=== PATIENT | male | born 1995 | race Caucasian/White ===

== ENCOUNTER 2022-10-18 20:22 | Emergency (ER) | payer BC, OTHER ==
--- NOTE | 2022-10-18 20:38 | ERPHSYRPT ---
- History of Present Illness Time Seen by Provider: 10/18/22 20:38 Source: patient Exam Limitations: no limitations Physician History: This is 27-year-old white male patient who was feeling well until yesterday afternoon/evening when he began having a mild cough, headache, body aches sore throat and fever. Patient has no known exposure to individuals similar symptoms or with viral illness diagnoses. Patient states he took his temperature at home and his thermometer was reading 105.6 F. He has no chest pain. He does not have significant shortness of breath. He denies nausea vomiting or diarrhea. He has no abdominal pain. He has no neck pain. Timing/Duration: yesterday Fever Severity: moderate Fever Therapy SPEECH PATHOLOGIST: none Associated Symptoms: cough, headache, muscle aches, sore throat, No stiff neck Allergies/Adverse Reactions: No Known Drug Allergies Allergy (Verified 10/18/22 20:54) Hx Tetanus, Diphtheria Vaccination/Date Given: Yes Hx Influenza Vaccination/Date Given: No Hx Pneumococcal Vaccination/Date Given: No Travel Risk - International Travel Have you traveled outside of the country in past 3 weeks: No - Coronavirus Screening Are you exhibiting any of the following symptoms?: Yes Symptoms: Fever, Cough: New Onset, Headaches/Body Aches/Fatigue Close contact with a COVID-19 positive Pt in past 14-21 Days: No - Review of Systems Constitutional: Fever Eyes: No Symptoms Ears, Nose, & Throat: Throat Pain Respiratory: Cough, No Dyspnea Cardiac: No Symptoms, No Chest Pain Abdominal/Gastrointestinal: No Symptoms Genitourinary Symptoms: No Symptoms Musculoskeletal: Arthralgias, Myalgias Skin: No Symptoms Neurological: No Symptoms Psychological: No Symptoms Endocrine: No Symptoms Hematologic/Lymphatic: No Symptoms Immunological/Allergic: No Symptoms All Other Systems: Reviewed and Negative - Past Medical History Pertinent Past Medical History: No - Past Surgical History Past Surgical History: No - Social History Smoking Status: Never smoker Exposure to second hand smoke: No Drug Use: none Patient Lives Alone: Yes - Nursing Vital Signs Nursing Vital Signs: Initial Vital Signs Temperature 103.3 F 10/18/22 20:36 Pulse Rate 94 H 10/18/22 20:36 Respiratory Rate 18 10/18/22 20:36 Blood Pressure 137/67 10/18/22 20:36 O2 Sat by Pulse Oximetry 98 10/18/22 20:36 Pain Scale Pain Intensity 8 - Physical Exam General Appearance: mild distress, alert Eye Exam: PERRL/EOMI, eyes nml inspection ENT Exam: normal ENT inspection, pharynx normal Neck Exam: normal inspection, non-tender, supple, full range of motion Respiratory Exam: normal breath sounds, lungs clear, no accessory muscle use, No chest non-tender, No no respiratory distress, No decreased breath sounds, No respiratory distress, No accessory muscle use, No stridor, No wheezing Cardiovascular/Chest Exam: normal heart sounds, tachycardia Gastrointestinal/Abdominal Exam: soft, non tender, no distention, no mass, no guarding, no ecchymosis, no organomegaly, no pulsatile mass, normal bowel sounds Rectal Exam: not done Extremity Exam: non-tender, normal range of motion, normal inspection, normal capillary refill, no calf tenderness, no pedal edema, pelvis stable, No calf tenderness Neurologic Exam: alert, oriented x 3, cooperative, fish peddler II-XII nml as tested, normal mood/affect, nml cerebellar function, nml station & gait, sensation nml Skin Exam: normal color, warm, dry Lymphatic: No adenopathy SpO2 Interpretation: normal O2 Delivery: Room Air - Course Nursing assessment & vital signs reviewed: Yes Ordered Tests: Active Orders 24 hr Category Date Time Status IV Insertion STAT Care 10/18/22 21:42 Active UA W/RFX UR CULTURE Stat Lab 10/18/22 21:02 Completed Medication Summary Generic Name Dose Route Start Last Admin Trade Name Freq PRN Reason Stop Dose Admin Sodium Chloride 1,000 mls @ 999 mls/hr 10/18/22 21:42 10/18/22 21:44 Sodium Chloride 0.9% 1000 Ml IV 10/18/22 22:42 999 mls/hr .Q1H1M STA Administration Discontinued Medications Generic Name Dose Route Start Last Admin Trade Name Freq PRN Reason Stop Dose Admin Acetaminophen 650 mg 10/18/22 20:46 10/18/22 20:52 Acetaminophen 325 Mg Tablet PO 10/18/22 20:47 650 mg STAT STA Administration Acetaminophen Confirm 10/18/22 20:50 Acetaminophen 325 Mg Tablet Administered 10/18/22 20:51 Dose 650 mg .ROUTE .STK-MED ONE Hydrocodone Bitart/Acetaminophen 15 ml 10/18/22 21:45 10/18/22 21:55 Hydrocodone/Acetaminophen 5 Ml Udcup PO 10/18/22 21:46 15 ml STAT STA Administration Hydrocodone Bitart/Acetaminophen Confirm 10/18/22 21:54 Hydrocodone/Acetaminophen 5 Ml Udcup Administered 10/18/22 21:55 Dose 15 ml .ROUTE .STK-MED ONE Sodium Chloride Confirm 10/18/22 21:40 Sodium Chloride 0.9% 1000 Ml Administered 10/18/22 21:41 Dose 1,000 mls @ ud .ROUTE .STK-MED ONE Ibuprofen 600 mg 10/18/22 20:46 10/18/22 20:53 Ibuprofen 600 Mg Tablet PO 10/18/22 20:47 600 mg STAT ONE Administration Ibuprofen Confirm 10/18/22 20:50 Ibuprofen 600 Mg Tablet Administered 10/18/22 20:51 Dose 600 mg .ROUTE .STK-MED ONE Oseltamivir Phosphate 75 mg 10/18/22 21:56 10/18/22 21:59 Oseltamivir 75 Mg Cap PO 10/18/22 21:57 75 mg STAT ONE Administration Oseltamivir Phosphate Confirm 10/18/22 21:59 Oseltamivir 75 Mg Cap Administered 10/18/22 22:00 Dose 75 mg PO .STK-MED ONE Lab/Rad Data: Laboratory Results 10/18/22 10/18/22 10/18/22 Range/Units 21:05 21:05 21:02 Urine Color Dark Yellow (Yellow) Urine Appearance Clear (Clear) Urine pH 6.0 (4.6-8.0) Ur Specific Marshall >=1.030 A (1.005-1.030) Urine Protein 30 (Negative) Urine Glucose (UA) Negative (Negative) mg/dL Urine Ketones Trace A (Negative) Urine Blood Negative (Negative) Urine Nitrite Negative (Negative) Urine Bilirubin Small A (Negative) Urine Urobilinogen 1.0 A (0.2) mg/dL Ur Leukocyte Esterase Negative (Negative) Urine Microscopic RBC 0-2 (0-5) /HPF Urine Microscopic WBC 3-5 (0-5) /HPF Ur Epithelial Cells Rare (None Seen) /HPF Urine Bacteria None Seen (None Seen) /HPF Urine Culture Reflexed NO (NO) Influenza Type A Ag POSITIVE (NEGATIVE) Influenza Type B Ag NEGATIVE (NEGATIVE) RSV (PCR) NEGATIVE (Negative) SARS-CoV-2 (PCR) NEGATIVE (NEGATIVE) Group A Strep Antibody NOT DETECTED (NEGATIVE) - Progress Progress: improved Counseled pt/family regarding: lab results, diagnosis, need for follow-up - Departure Departure Disposition: Home Clinical Impression: Fever, Influenza A H1N1 infection Condition: Stable Critical Care Time: No Referrals: LISA RINCON MD [Primary Care Provider] - Follow up/PCP as directed Additional Instructions: Drink plenty of cool liquids. Every 3 hours take a lukewarm bath or shower. Add ibuprofen 600 mg every 8 hours with food for the next 5 days. This will help with aches and pains and fever control. Take your Tamiflu as prescribed. Follow-up with your primary care provider for further evaluation management. Prescriptions: Hydrocodone/Acetaminophen [Hydrocodone-Acetamn 7.5-325/15] 10 ml PO Q8H PRN PRN #120 ml MDD 30 ml PRN Reason: Cough Oseltamivir 75 mg [Tamiflu 75MG Capsule] 75 mg PO BID #10 cap
[2022-10-18] MEDS ORDERED: TYLENOL 325 MG PO STA (20:46)
[2022-10-18] MEDS ORDERED: MOTRIN 600 MG PO ONE (20:46)
[2022-10-18] MEDS ORDERED: TYLENOL 325 MG ONE (20:50)
[2022-10-18] MEDS ORDERED: MOTRIN 600 MG ONE (20:50)
[2022-10-18 21:14] LABS: Appearance Clear (Clear); Bacteria None Seen /HPF (None Seen); Bilirubin Small (Negative); Blood Negative (Negative); Epithelial Cells Rare /HPF (None Seen); Glucose, Urine Negative (Negative); Ketones Trace (Negative); Leukocyte Esterase Negative (Negative); Nitrite Negative (Negative); Protein,Urine Dip 30 (Negative); RBC 0-2 /HPF (0-5); Specific Gravity >=1.030 (1.005-1.030)
[2022-10-18 21:17] LABS: ADD URINE CULTURE? NO (NO)
[2022-10-18] MEDS ORDERED: Sodium Chloride 0.9% 1000 ML 1,000 ML ONE (21:40)
[2022-10-18] MEDS ORDERED: Sodium Chloride 0.9% 1000 ML 1,000 ML IV STA (21:42)
[2022-10-18] MEDS ORDERED: HYDROCODONE-ACETAMIN 2.5-108/5 ML SOLUTION PO STA (21:45)
[2022-10-18 21:48] LABS: INFLUENZA B NEGATIVE (NEGATIVE); RESPIRATORY SYNCTIAL VIRUS NEGATIVE (Negative); SARS-CoV-2 Xpert Express NEGATIVE (NEGATIVE)
[2022-10-18 21:53] LABS: INFLUENZA A POSITIVE (NEGATIVE)
[2022-10-18] MEDS ORDERED: HYDROCODONE-ACETAMIN 2.5-108/5 ML SOLUTION ONE (21:54)
[2022-10-18] MEDS ORDERED: Tamiflu 75MG Capsule PO ONE ×2 (21:56→21:59)
[2022-10-18 22:47] VITALS: O2SAT 99
[2022-10-18 22:48] VITALS: BP 131/63; PULSE 76
== END 2022-10-18 23:07 | disposition home or self-care (01) ==
LOC: ED 20:22
DX: J10.1 Influenza due to other identified influenza virus with other respiratory manifestations (principal); R50.9 Fever, unspecified; R05.1 Acute cough; R51.9 Headache, unspecified; M79.10 Myalgia, unspecified site; Z79.891 Long term (current) use of opiate analgesic
CPT/HCPCS: 0241U; 36000; 81001; 87651; 99284; A9270-GY